=== PATIENT | female | born 1995 | race Caucasian/White ===

== ENCOUNTER 2025-07-14 08:03 | Inpatient (IN) ==
[2025-07-14] MEDS ORDERED: LIDOCAINE 1% LOCAL 20 ML VIAL INFIL PRN (09:01)
--- NOTE | 2025-07-14 09:07 | History & Physical Report ---
Date of Service July 14, 2025 History of Present Illness Chief Complaint: onset of labor Primary Care Provider: Ruma Ng, DO 30 F P0000 at 40.3 weeks admitted in active labor. She started contraccting around 4 AM today and had a small gush of clear fluid that was Nitrazine positive on admission. GBS is negative. course has been unremarkable. Allergies Allergy/AdvReac Type Severity Reaction Status Date / Time No Known Allergies Allergy Unverified 07/14/25 08:36 Home Medications Medication Instructions Recorded Confirmed Type Vitamin 1 tab PO DAILY 07/14/25 07/14/25 History Patient History Medical History Depression Family History Other Cystic fibrosis Social History Smoking Status: Never smoker Hx Alcohol Use: No Hx Substance Use: No Preferred Language: Malay Communication Ability: Effective Business Affairs Manager Required: No Beliefs That Will Affect Care: None marital status: Current Living Situation: Spouse Current Living Situation Comment: Lives at home with and 1 dog Other Information That Helps Us Care for You: No Feels Safe at Home: Yes Safety Concerns: Feels Safe At This Time Assistive Devices: None 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 History neg Review of Systems All systems reviewed & are unremarkable except as noted in HPI & below Physical Exam Constitutional: WD/WN, vitals as above Eyes: PERRL, conjunctivae normal, anicteric sclerae Respiratory: normal respiratory effort Cardiovascular: Rate/Rhythm: regular rate and regular rhythm Gastrointestinal (Abdomen): Inspection/Auscultation: abdomen normal to inspection Musculoskeletal: Extremities: extremities normal to inspection Skin: no rashes, warm and dry Neurologic: patellar DTR's 2+ bilat, sensation intact Psychiatric: A+Ox3, euthymic affect Genitourinary: no vaginal lesions, no adnexal mass Manual OB Exam: + cervical dilation 3 cm, + cervical effacement 90%, + station -1 and + amniotic fluid clear and nitrazine positive OB Exam Monitor Tracing: + external FHT monitor used, + external uterine monitor used, + category I and + normal FHT variability Results & Data Vital Signs (Past 12 Hours) Vital Signs Temp Pulse Resp BP 12/13/25 08:15 83 121/74 07/14/25 08:15 37.0 C 18 Code Status & VTE Plan VTE Prophylaxis Plan VTE Prophylaxis will be ordered: No Monitoring External Monitor Cat 1
[2025-07-14] MEDS: LACTATED RINGER'S 1,000 ML IV PRN (09:12)
[2025-07-14 10:29] LABS: Hematocrit (blood only) 37.6 % (37.0-47.0); Hemoglobin 13.0 g/dL (12.0-16.0); Mean Corpuscular Hemoglobin 31.4 pg (25.0-34.0); Mean Corpuscular Volume 90.8 fL (80.0-100.0); Platelet Count 192 K/uL (130-400); RDW Standard Deviation 44.9 fL (36.4-46.3); Red Blood Count 4.14 M/uL (4.20-5.40); White Blood Count 15.55 K/ul (4.8-10.8)
--- NOTE | 2025-07-14 11:09 | Labor Progress Brief Note ---
Date of Service July 14, 2025 Assessment & Plan Admission and Anticipated Discharge Date Admission Date: July 14, 2025 Physical Exam Genitourinary: Manual OB Exam: + cervical dilation 4 cm, + cervical effacement 90% and + station -1 OB Exam Monitor Tracing: + external FHT monitor used, + external uterine monitor used, + category I and + normal FHT variability Results & Data Vital Signs (Past 12 Hours) Vital Signs Temp Pulse Resp BP 07/14/25 10:25 18 07/14/25 10:25 36.6 C 18 07/14/25 10:23 90 133/82 07/14/25 08:15 37.0 C 83 18 121/74 07/14/25 08:15 37.0 C 18
--- NOTE | 2025-07-14 12:08 | Anesthesiology Consultation ---
Date of Service July 14, 2025 Assessment & Plan Chart Review Chart Review: Acceptable Risk for Surgery and Patient NOT seen in Pre Admission Testing Consults Requested none ASA ASA2 Proposed Anesthesia Anesthesia Type: Labor Epidural and CSE History Height/Weight Height: 5 ft 10 in Weight: 98.4 kg Allergies Allergy/AdvReac Type Severity Reaction Status Date / Time No Known Allergies Allergy Unverified 07/14/25 08:36 Medications Home Medications Medication Instructions Recorded Confirmed Last Taken Vitamin 1 tab PO DAILY 07/14/25 07/14/25 07/14/25 Active Medications Generic Name Dose Route Start Last Admin Trade Name Freq PRN Reason Stop Dose Admin Lactated Ringer's 1,000 mls @ 125 mls/hr 07/14/25 09:01 07/14/25 09:12 Lr IV 07/16/25 09:00 125 mls/hr .Q8H PRN Administration L&D Protocol Protocol Past Medical History Medical History Depression gerd obese Exercise / Class Metabolic Activity II 4-5 Yardwork/Stairs/Walk up hill Past Family History Family History Other Cystic fibrosis Past Anesthesia History No Hx of Anesthesia Complications and No Family Hx of Anesthesia Complications History of PONV No Hx of PONV and No Hx of Motion Sickness Social History Smoking Status: Never smoker Hx Alcohol Use: No Hx Substance Use: No Physical Exam Vital Signs Last Vital Signs Temp 36.6 C 07/14/25 10:25 Pulse 90 07/14/25 10:23 Resp 18 07/14/25 10:25 BP 133/82 07/14/25 10:23 Testing Laboratory Results 07/14/25 09:48
[2025-07-14] MEDS: fentANYL 2 MCG/ML BUPIVacaine 0.125%-NSS 100ML BAG ONE (12:40)
[2025-07-14] MEDS ORDERED: NALOXONE HCL 0.4 MG/1 ML VIAL/CARP IV PRN (12:41)
[2025-07-14] MEDS ORDERED: ROPIVACAINE 0.5% PF 5 MG/ML 20 ML VIAL EPI PRN (12:41)
[2025-07-14] MEDS ORDERED: LIDOCAINE 2% MPF LOCAL 5 ML VIAL EPI PRN (12:41)
[2025-07-14] MEDS ORDERED: diphenhydrAMINE 50 MG/ML VIAL IV PRN (12:41)
[2025-07-14] MEDS ORDERED: ONDANSETRON INJ 2 MG/ML 2 ML VIAL IV PRN (12:41)
[2025-07-14] MEDS ORDERED: BUPIVACAINE 0.25% PF 30 ML VIAL EPI PRN (12:41)
[2025-07-14] MEDS ORDERED: PROMETHAZINE 6.25 MG/50.25 ML BAG IV PRN (12:41)
[2025-07-14] MEDS ORDERED: NALOXONE HCL 1 MG in SODIUM CHLORIDE 0.9% 1,000 ML IV PRN (12:41)
[2025-07-14] MEDS ORDERED: SODIUM CHLORIDE 0.9% PF INJ 10 ML VIAL EPI PRN (12:41)
[2025-07-14] MEDS ORDERED: fentANYL 2 MCG/ML BUPIVacaine 0.125%-NSS 100ML BAG EPI PRN (12:41)
[2025-07-14] MEDS ORDERED: NALBUPHINE HCL INJ 10 MG/ML AMP IV PRN (12:41)
[2025-07-14] MEDS: LIDOCAINE 2%/EPINEPHRINE 1:200,000 20 ML PF ONE (12:47)
[2025-07-14] MEDS: BUPIVACAINE 0.25% PF 30 ML VIAL ONE (12:47)
--- NOTE | 2025-07-14 14:09 | Labor Progress Brief Note ---
Date of Service July 14, 2025 Assessment & Plan Admission and Anticipated Discharge Date Admission Date: July 14, 2025 Physical Exam Genitourinary: Manual OB Exam: + cervical dilation 6 cm, + cervical effacement 90%, + station 0 and + amniotic fluid clear OB Exam Monitor Tracing: + external FHT monitor used, + external uterine monitor used, + category I and + normal FHT variability Results & Data Vital Signs (Past 12 Hours) Vital Signs Temp Pulse Resp BP Pulse Ox 07/14/25 14:03 71 96 07/14/25 14:00 65 95/52 L 07/14/25 13:58 65 95 07/14/25 13:54 66 90/55 L 07/14/25 13:53 70 96 07/14/25 13:50 65 100/52 L 07/14/25 13:48 71 96/53 L 95 07/14/25 13:47 64 07/14/25 13:47 84/49 L 07/14/25 13:47 72 82/45 L 07/14/25 13:46 82 86/52 L 07/14/25 13:43 89 95 07/14/25 13:38 89 96 07/14/25 13:33 92 H 98 07/14/25 13:32 89 111/61 07/14/25 13:28 86 97 07/14/25 13:23 95 H 96 07/14/25 13:18 82 95 07/14/25 13:15 96 H 110/70 07/14/25 13:13 90 97 07/14/25 13:08 95 H 97 07/14/25 13:04 106 H 98 07/14/25 13:00 18 07/14/25 13:00 18 07/14/25 12:59 90 103/56 L 07/14/25 12:58 93 H 95 07/14/25 12:54 98 H 106/60 07/14/25 12:53 95 H 96 07/14/25 12:52 85 106/57 L 07/14/25 12:50 90 102/59 L 07/14/25 12:49 95 H 94 07/14/25 12:48 94 07/14/25 12:48 99 H 07/14/25 12:48 95 H 103/57 L 07/14/25 12:46 109 H 108/60 07/14/25 12:44 100 H 105/59 L 07/14/25 12:43 97 H 96 07/14/25 12:42 98 H 107/55 L 07/14/25 12:40 98 H 116/59 L 07/14/25 12:39 99 H 96 07/14/25 12:38 90 115/67 07/14/25 12:35 90 128/66 07/14/25 12:33 92 H 97 07/14/25 12:29 83 98 07/14/25 12:24 99 H 97 07/14/25 12:18 100 07/14/25 12:18 88 07/14/25 12:18 84 131/79 07/14/25 12:14 86 99 07/14/25 12:00 20 07/14/25 12:00 37.1 C 20 07/14/25 10:25 18 07/14/25 10:25 36.6 C 18 07/14/25 10:23 90 133/82 07/14/25 08:15 37.0 C 83 18 121/74 07/14/25 08:15 37.0 C 18
[2025-07-14] MEDS: OXYTOCIN 30 UNITS/NSS 30 UNITS/500 ML BAG IV PRN ×2 (14:32→20:06)
[2025-07-14] MEDS: LIDOCAINE 2%/EPINEPHRINE 1:200,000 20 ML PF EPI STA (16:27)
[2025-07-14] MEDS: SODIUM CHLORIDE 0.9% PF INJ 10 ML VIAL EPI STA (16:27)
[2025-07-14] MEDS: SODIUM CHLORIDE 0.9% PF INJ 10 ML VIAL ONE (16:27)
[2025-07-14] MEDS: BUPIVACAINE 0.25% PF 30 ML VIAL EPI STA (16:27)
[2025-07-14] MEDS ORDERED: HYDROCORTISONE ACETATE 25 MG SUPP PR PRN (19:51)
[2025-07-14] MEDS ORDERED: ACETAMINOPHEN 325 MG TAB PO PRN (19:51)
[2025-07-14] MEDS ORDERED: OXYTOCIN 30 UNITS/NSS 30 UNITS/500 ML BAG IV PRN (19:51)
--- NOTE | 2025-07-14 19:54 | Delivery Summary ---
Vaginal Delivery Summary Date of Service July 14, 2025 Vaginal Delivery Summary live male NOLVIA over intact perineum with delayed cord clamping and Apgars of 8/9 birthweight pending. Cord blood obtained fiolloed by spontaneous delivery of intact placenta. Second degree tear repaired with 3/0 Vicryl suture. Right sided vaginal wall tear repaired with 3/0 Vicryl suture. QBL 290 ml. Final sponge, needle and instrument count are correct. Mom and baby stable.
--- NOTE | 2025-07-14 20:15 | Anesthesia Procedure Note ---
Date of Service July 14, 2025 Anesthesia Post Epidural Note Vital Signs Vital Signs: Temp Pulse Resp BP Pulse Ox 98.2 F 117 H 18 110/61 94 07/14/25 19:00 07/14/25 20:00 07/14/25 19:00 07/14/25 20:00 07/14/25 19:53 Pain Intensity Lower Abdomen: Pain Intensity: 3 Notes Mental Status: alert / awake / arousable and participated in evaluation Nausea / Vomiting: adequately controlled Pain: adequately controlled Airway Patency, RR, SpO2: stable & adequate BP & HR: stable & adequate Hydration State: stable & adequate Neuraxial Anesthesia: was administered and sensory block is resolving Anesthetic Complications: no major complications apparent and Pt Satisfied with anesthetic care Epidural: Removed without complications and With tip intact
[2025-07-14] MEDS: DIPHTHER/TETAN/PERTUS Vaccine (Tdap, Adol/Adult) 0.5mL IM ONE (20:20)
[2025-07-14] MEDS: DOCUSATE SODIUM 100 MG CAP PO SCH (21:37)
[2025-07-14] MEDS: BENZOCAINE 20% SPRY 85 APPLN/85 GM CAN EXT PRN (21:37)
[2025-07-15] MEDS: IBUPROFEN 600 MG TAB PO PRN (02:35)
[2025-07-15 06:45] LABS: Hematocrit (blood only) 33.9 % (37.0-47.0); Hemoglobin 11.8 g/dL (12.0-16.0); Mean Corpuscular Hemoglobin 31.6 pg (25.0-34.0); Mean Corpuscular Volume 90.9 fL (80.0-100.0); Platelet Count 176 K/uL (130-400); RDW Standard Deviation 44.7 fL (36.4-46.3); Red Blood Count 3.73 M/uL (4.20-5.40); White Blood Count 19.27 K/ul (4.8-10.8)
[2025-07-15] MEDS: PRENATAL VITAMIN 1 TAB PO SCH (08:17)
[2025-07-15] MEDS: FERROUS SULFATE 325 MG TAB PO SCH (08:17)
[2025-07-15] MEDS ORDERED: NON-FORMULARY MEDICATION (Prenatal Vitamin 1 TAB) PO SCH (09:00)
--- NOTE | 2025-07-15 09:51 | Obstetrical Progress Note ---
Date of Service July 15, 2025 Subjective Ambulation: ambulating normally Voiding: no voiding problems Passing Gas:: Yes Diet Tolerance:: regular diet Lochia:: Small Feeding Type:: breast feeding Current Pain Level(1-10): 0 doing well. plans for d/c tomorrow. Physical Exam Constitutional WD/WN, vitals as above Gastrointestinal (Abdomen) Inspection/Auscultation: abdomen normal to inspection abdomen soft and non-tender. fundus firm below U. Musculoskeletal Extremities: extremities normal to inspection Skin no rashes, warm and dry Neurologic patellar DTR's 2+ bilat, sensation intact Psychiatric A+Ox3, euthymic affect Results & Data Vital Signs (Past 12 Hours) Vital Signs Temp Pulse Resp BP Pulse Ox O2 Del Method 07/15/25 03:54 36.7 C 88 16 102/62 97 Room Air 07/14/25 23:00 37.0 C 98 H 16 110/60 98 Room Air Laboratory Results 07/14/25 07/15/25 09:48 06:23 WBC 15.55 H 19.27 H RBC 4.14 L 3.73 L Hgb 13.0 11.8 L Hct 37.6 33.9 L MCV 90.8 90.9 MCH 31.4 31.6 MCHC 34.6 34.8 RDW Std Deviation 44.9 44.7 RDW Coeff of Yayo 13.2 13.4 Plt Count 192 176 MPV 11.3 11.3 Treponema pallidum Ab Negative
[2025-07-16 07:41] LABS: Hematocrit (blood only) 35.2 % (37.0-47.0); Hemoglobin 11.9 g/dL (12.0-16.0); Immature Granulocytes # (auto) 0.04 K/uL (0.01-0.20); Immature Granulocytes % (auto) 0.3 %; Mean Corpuscular Hemoglobin 31.1 pg (25.0-34.0); Mean Corpuscular Volume 91.9 fL (80.0-100.0); Platelet Count 172 K/uL (130-400); RDW Standard Deviation 46.5 fL (36.4-46.3); Red Blood Count 3.83 M/uL (4.20-5.40); White Blood Count 13.12 K/ul (4.8-10.8)
--- NOTE | 2025-07-16 08:45 | Obstetrical Progress Note ---
Date of Service July 16, 2025 Assessment & Plan Admission and Anticipated Discharge Date Admission Date: July 14, 2025 Subjective Patient is seen and examined. She feels well, no complaints. Ambulating without dizziness Voiding without difficulty Tolerating regular diet with out N&V Bleeding is minimal No fever/ chills/ CP/ SOB/ N&V/ Leg pain Breast feeding without problems Vital Signs Temp Pulse Resp BP Pulse Ox O2 Del Method 07/15/25 23:05 Room Air 07/15/25 23:05 37.1 C 83 16 111/70 98 Room Air 07/15/25 19:55 36.8 C 89 16 102/65 97 Room Air 07/15/25 15:40 Room Air 07/15/25 15:40 37.0 C 84 18 102/70 97 Room Air 07/15/25 12:15 36.4 C L 90 18 103/71 98 Room Air Lab Results 07/14/25 07/15/25 07/16/25 Range/Units 09:48 06:23 07:22 WBC 15.55 H 19.27 H 13.12 H (4.8-10.8) K/ul RBC 4.14 L 3.73 L 3.83 L (4.20-5.40) M/uL Hgb 13.0 11.8 L 11.9 L (12.0-16.0) g/dL Hct 37.6 33.9 L 35.2 L (37.0-47.0) % MCV 90.8 90.9 91.9 (80.0-100.0) fL MCH 31.4 31.6 31.1 (25.0-34.0) pg MCHC 34.6 34.8 33.8 (32.0-36.0) g/dL RDW Std Deviation 44.9 44.7 46.5 H (36.4-46.3) fL RDW Coeff of Yayo 13.2 13.4 13.7 (11.5-14.5) % Plt Count 192 176 172 (130-400) K/uL MPV 11.3 11.3 10.8 (9.4-12.4) fL Immature Gran % (Auto) 0.3 % Neut % (Auto) 76.3 % Lymph % (Auto) 14.6 % Dade % (Auto) 7.2 % Eos % (Auto) 1.2 % Baso % (Auto) 0.4 % Neut # (Auto) 10.00 H (1.40-6.50) K/uL Lymph # (Auto) 1.92 (1.20-3.40) K/uL Dade # (Auto) 0.95 H (0.11-0.59) K/uL Eos # (Auto) 0.16 (0.00-0.50) K/uL Baso # (Auto) 0.05 (0.00-0.20) K/uL Immature Gran # (Auto) 0.04 (0.01-0.20) K/uL Treponema pallidum Ab Negative (Negative) PE: General: Alert, orientedx3, NAD Abd: soft, NT, fundus firm, below Umbilicus Perineum intact, Lochia rubra minimal Ext; NT, no edema AP: 30 yo s/p , ppd# 2 VSS Afebrile doing well Continue routine care All questions were answered D/C home , f/u in office Results & Data Vital Signs (Past 12 Hours) Vital Signs Temp Pulse Resp BP Pulse Ox O2 Del Method 07/15/25 23:05 Room Air 07/15/25 23:05 37.1 C 83 16 111/70 98 Room Air
[2025-07-16 10:09] VITALS: BP 106/73; PULSE 86; RESP 14; TEMP 98.4; O2SAT 97
== END 2025-07-16 15:45 | disposition home health service (06) | DRG 807 ==
LOC: OPB 08:03 → 4S1 08:07 → 4E2 22:56